=== PATIENT | male | born 1950 | race Caucasian/White ===

== ENCOUNTER 2022-01-07 06:09 | Day surgery (SDC) | payer MEDICARE, BC ==
[~2022-01-07 06:09] MED LIST: Lactated Ringers 1,000 ML IV SCH; Lidocaine 1%/Sod Bicarbonate in NS 8.4% 1 ML Syringe IDERM PRN; Sodium Chloride 0.9% 10 ML Syringe FLUSH PRN; Sodium Chloride 0.9% 10 ML Syringe FLUSH SCH
[2022-01-07] MEDS ORDERED: Lidocaine 1% 5 ML VIAL ONE (06:15)
[2022-01-07] MEDS ORDERED: Propofol 200 MG/20 ML SDV ONE (06:15)
[2022-01-07] MEDS ORDERED: fentaNYL 100 MCG/2 ML SDV ONE (06:15)
[2022-01-07] MEDS ORDERED: Triamcinolone Acetonide 40 MG/ML 1 ML SDV ONE (06:40)
[2022-01-07] MEDS ORDERED: Lidocaine 1% 10 ML MDV ONE (06:41)
[2022-01-07] MEDS ORDERED: Bupivacaine 0.25% 10 ML SDV ONE (06:41)
[2022-01-07] MEDS ORDERED: ceFAZolin 2 GM Vial ONE (07:16)
== END 2022-01-07 08:40 | disposition home or self-care (01) ==
LOC: JD.SDS 06:09
PROVIDERS: ATTEND Orthopaedic Surgery
DX: G56.12 Other lesions of median nerve, left upper limb (principal); M19.042 Primary osteoarthritis, left hand; G56.02 Carpal tunnel syndrome, left upper limb; K21.9 Gastro-esophageal reflux disease without esophagitis; E78.5 Hyperlipidemia, unspecified; I10 Essential (primary) hypertension; Z79.899 Other long term (current) drug therapy; Z98.890 Other specified postprocedural states; Z90.49 Acquired absence of other specified parts of digestive tract; Z87.891 Personal history of nicotine dependence; Z79.82 Long term (current) use of aspirin
CPT/HCPCS: 20600; 64721; J0690; J2704; J3010; J3301; J3490; J7120; 01810